=== PATIENT | female | born 1990 | race Caucasian/White ===

== ENCOUNTER 2019-02-10 11:13 | Emergency (ER) | payer MEDICAID, OTHER ==
[2019-02-10] MEDS: ONDANSETRON (ODT) 4 MG TAB ODT (13:18)
[2019-02-10] MEDS: HYDROCODONE/APAP (5/325) TAB PO (13:19)
== END 2019-02-10 14:56 | disposition home or self-care (01) ==
LOC: FTE 11:13
DX: R07.89 Other chest pain (principal); J45.909 Unspecified asthma, uncomplicated
CPT/HCPCS: 71045; 71120; 99283-25